=== PATIENT | female | born 1975 | race African-American/Black ===

== ENCOUNTER 2019-01-10 10:20 | Observation (INO) ==
[2019-01-10] MEDS ORDERED: NS 1,000 ML IV ONE ×3 (10:43→17:43)
--- NOTE | 2019-01-10 11:28 | Diag Imaging Result Doc PS360 ---
EXAM: CHEST-PORTABLE HISTORY: hypotension TECHNIQUE: Chest single view COMPARISON: 11/09/2018 FINDINGS: Poor inspiratory effort. The heart is not enlarged. The vessels are not distended. There are no infiltrates. No effusion identified. IMPRESSION: No acute abnormality. Electronically signed by Subhash Downey 01/10/2019 11:25 AM
[2019-01-10 11:43] LABS: BE -7.6 mmoll (-3.0-3.0); BLOOD TYPE ARTERIAL; METHB 0.3 % (0.0-1.5); O2(CT) 12.6 mL/dL (15.0-23.0); O2HB 97.3 % (95.0-99.0); PCO2(98.6) 27 mmHg (35-45); PO2(98.6) 152 mmHg (60-100); SAMPLE BLOOD; SAO2 99.2 % (95.0-100.0); pH(98.6) 7.39 (7.35-7.45)
[2019-01-10 12:09] LABS: ALLEN TEST NO; MODALITY ROOM AIR
--- NOTE | 2019-01-10 12:15 | EKG Report ---
Test Performed on : 01/10/2019 11:27:14 AM Test Reason : hypotension Blood Pressure : / mmHG Vent. Rate : 087 BPM Atrial Rate : 087 BPM P-R Int : 178 ms QRS Dur : 072 ms QT Int : 354 ms P-R-T Axes : 034 024 027 degrees QTc Int : 425 ms Normal sinus rhythm. Nonspecific T wave abnormality Abnormal ECG When compared with ECG of 05-JAN-2019 23:45, (Unconfirmed) No significant change was found Unconfirmed Result
[2019-01-10 12:16] LABS: BASO# 0.05 X1000 (0.0-0.2); BASO% 0.5 % (0.0-0.8); EOS# 0.43 X1000 (0.0-0.7); EOS% 4.3 % (0.0-10.0); HEMATOCRIT 28.1 % (37.0-47.0); HEMOGLOBIN 8.6 g/dL (12.0-16.0); IMM GRAN# 0.03 X1000 (0.0-0.04); IMM GRAN% 0.3 % (0.0-0.5); LYMPH# 1.65 X1000 (1.2-3.4); LYMPH% 16.4 % (20.5-51.1); MCH 23.6 PG (27-31); MCHC 30.6 g/dL (33-37); MCV 77.2 FL (81-99); MONO# 0.75 X1000 (0.11-0.59); MONO% 7.4 % (1.7-9.3); MPV 11.7 FL (7.4-10.4); NEUT# 7.17 X1000 (1.4-6.5); NEUT% 71.1 % (42.2-75.2); PLT 278 X1000 (130-400); RBC 3.64 XMIL (4.2-5.4); WBC 10.08 X1000 (4.8-10.8)
[2019-01-10 12:27] LABS: ALBUMIN 3.8 g/dL (3.5-5.0); CALCIUM 8.5 mg/dL (8.8-10.2); MAGNESIUM 2.1 mg/dL (1.5-2.7); PHOSPHORUS 2.8 mg/dL (2.7-4.5); POTASSIUM 4.8 mmol/L (3.5-5.1); TOTAL BILIRUBIN 0.2 mg/dL (0.20-1.00); TOTAL PROTEIN 7.7 g/dL (6.3-8.3)
[2019-01-10 12:32] LABS: INR 1.06; PROTIME 14.3 Seconds (11.0-16.0)
[2019-01-10 12:38] LABS: BILIRUBIN URINE 2+ (NEGATIVE); BLOOD URINE TRACE (NEGATIVE); CLARITY VERY CLOUDY (CLEAR); COLOR YELLOW; GLUCOSE URINE NEGATIVE (NEGATIVE); KETONE URINE TRACE mg/dL (NEGATIVE); LEUKOCYTES URINE 2+ (NEGATIVE); NITRITE URINE NEGATIVE (NEGATIVE); PROTEIN URINE 1+(30 mg/dL) mg/dL (NEGATIVE); SP GRAVITY URINE 1.025; UR AMPHETAMINES QUAL NONE DETECTED (NONE DETECT); UR BARBITUATES QUAL NONE DETECTED (NONE DETECT); UR BENZODIAZEPIN QUAL NONE DETECTED (NONE DETECT); UR CANNABINOIDS QUAL NONE DETECTED (NONE DETECT); UR COCAINE QUAL NONE DETECTED (NONE DETECT); UR METHADONE QUAL NONE DETECTED (NONE DETECT); UR METHAMPHETAMINE QUAL NONE DETECTED (NONE DETECT); UR OPIATES QUAL PRESUMPTIVE POSITIVE (NONE DETECT); UR OXYCODONE QUAL NONE DETECTED (NONE DETECT); UR PCP QUAL NONE DETECTED (NONE DETECT); UR PROPOXYPHENE QUAL NONE DETECTED (NONE DETECT); UR TCA QUAL PRESUMPTIVE POSITIVE (NONE DETECT); UROBILINOGEN URINE 1 mg/dL
[2019-01-10 12:43] LABS: URINE BACTERIA 3+ /HFP; URINE CAST NONE SEEN /LPF; URINE CRYSTAL NONE SEEN /HPF; URINE EPITHELIAL CELLS >10 /HPF (<10); URINE RBC <10 /HPF (<10); URINE SOURCE CLEAN CATCH; URINE WBC 20-40 /HPF (<10); URINE YEAST NONE SEEN /HPF
[2019-01-10] MEDS ORDERED: NORCO-5 PO ONE (13:11)
[2019-01-10] MEDS ORDERED: NS 1,000 ML ONE (14:00)
--- NOTE | 2019-01-10 14:24 | PROVIDER DOCUMENTATION ---
This chart was entered by Katina Schumacher Scribe, acting as scribe for Christiano Katz MD. HPI-General Adult - General Chief Complaint: B/P Problems Stated Complaint: LOW BP Time Seen by Provider: 01/10/19 10:41 Source: patient Allergies/Adverse Reactions: Patient Allergies Allergy/AdvReac Type Severity Reaction Status Date / Time Penicillins Allergy Unknown Unknown Verified 01/06/19 01:36 latex Allergy RASH Verified 01/06/19 01:36 Home Medications: Home Medication List Medication Instructions Recorded Confirmed Last Taken Type Gabapentin [Neurontin] 400 mg PO TID 04/24/16 01/06/19 06/19/17 History Amitriptyline HCl 100 mg PO QHS 05/18/18 01/06/19 Unknown History Hydroxyzine HCl 3 tab PO DIRECTED 05/18/18 01/05/19 Unknown History Hydrocodone/APAP 10 mg/325 mg 1 tab PO TID PRN 01/05/19 01/05/19 Unknown History [Porter-10] Magnesium Oxide 1 tab PO DAILY 01/05/19 01/05/19 Unknown History Tizanidine [Zanaflex] 1 tab PO TID 01/05/19 01/05/19 Unknown History Topiramate [Topamax] 1 tab PO DAILY 01/05/19 01/05/19 Unknown History Lurasidone HCl [Latuda] 120 mg PO DAILY 01/06/19 01/06/19 Unknown History - History of Present Illness -Gen Adult Nature of Presenting Problems: 43 yof presents to ED c/o blood in urine this morning, low blood pressure today, confusion and sleepy. Pt reports she was at Dr. Sweeney's office getting a routine iron infusion, her blood pressure dropped low and so she was referred here. Pt states she is just recovering from a UTI and kidney injury that required inpatient hospital stay 3 days ago. Pt has hx of HTN, sleep apnea, headaches/migraines and DM. Pt denies any pain. Location of Pain/Injury: reports: none Quality of Pain: reports: none Modifying Factors: improves with: nothing Associated Symptoms: reports: denies symptoms Review of Systems - Adult - REVIEW OF SYSTEMS - ADULT Constitutional: reports: see claudia HARDEN. denies: chills, fever Eyes: reports: no symptoms reported Ears, Nose, Mouth & Throat: reports: no symptoms reported Cardiovascular: reports: see HPI, other (low blood pressure). denies: chest pain, syncope Respiratory: reports: see HPI. denies: cough, shortness of breath, wheezing Gastrointestinal: reports: no symptoms reported Genitourinary: reports: see HPI, dysuria. denies: discharge, flank pain Musculoskeletal: reports: no symptoms reported Integumentary: reports: no symptoms reported Neurological: reports: see HPI, other (confusion). denies: seizure, syncope Psychiatric: reports: no symptoms reported Endocrine: reports: no symptoms reported Hematologic/Lymphatic: reports: no symptoms reported Allergic/Immunologic: reports: no symptoms reported All Other Systems: Reviewed and Negative Past History - Adult - PAST MEDICAL HISTORY-ADULT Review of Records: reports: Old Records Reviewed, Nursing Assessment Review, Medications Reviewed, Social history reviewed & non-contributory. Major Childhood Illnesses: reports: denies history Cardiovascular: reports: HTN Respiratory: reports: sleep apnea Gastrointestinal: reports: denies history Obstetrical/Gynecological: reports: denies history Genitourinary: reports: denies history Musculoskeletal: reports: denies history Neurological: reports: headaches/migraines Endocrine/Immune: reports: Diabetes Other Conditions: reports: denies history - PRIOR SURGERIES/PROCEDURES Surgical/Procedure History: reports: cholecystectomy, hysterectomy, BTL, C- section, other (simus surgery) - IMMUNIZATION STATUS Childhood Immunizations: See Nurse Assessment Flu Vaccine: See Nurse Assessment - FAMILY HISTORY Family History: reviewed, not pertinent - SOCIAL HISTORY Smoking: denies Physical Exam-General - PHYSICAL EXAM-ADULT Initial Vital Signs Reviewed: Yes - CONSTITUTIONAL General Appearance: appears well, no apparent distress, other (flat). negative: anxious - EYES Eyes: PERRL/EOMI, pink conjunctivae. negative: photophobia - HEAD, EARS, NOSE, MOUTH & THROAT HENMT: pharynx normal. negative: moist mucous membranes, pharyngeal erythema, tonsillar exudate - NECK Neck: non-tender, full range of motion, supple, normal inspection. negative: B rudzinski's sign, carotid bruit - RESPIRATORY Respiratory: chest non-tender, lungs clear, normal breath sounds, no pleuratic chest pain, no respiratory distress, no accessory muscle use. negative: crackles, rales, rhonchi - CARDIOVASCULAR Cardiovascular: normal peripheral pulses, regular rate, rhythm, no edema, no gallop, no JVD, no murmur. negative: bradycardia, tachycardia - GASTROINTESTINAL (ABDOMEN) Abdominal Exam: normal bowel sounds, non tender, soft. negative: rigid, r ebound, tenderness - LYMPHATIC Lymphatic: no adenopathy. negative: striations - MUSCULOSKELETAL Back Exam: normal inspection. negative: swelling Extremity: normal range of motion, normal inspection. negative: swelling - SKIN Integumentary: normal color, normal turgor, warm/dry. negative: jaundice Progress - PLAN OF CARE/RESULTS Progress/Plan/Lab Results: Vital Signs - 8 hr 01/10/19 10:36 01/10/19 11:02 Temperature 98.2 F Pulse Rate 87 88 Respiratory Rate 18 15 Blood Pressure 72/46 96/60 O2 Sat by Pulse Oximetry 100 100 Orders Category Date Time Status Saline Loc NOW Care 01/10/19 10:42 Active Straight Catheterization ORDERED Care 01/10/19 10:56 Active CHEST-PORTABLE [RAD] Stat Exams 01/10/19 10:43 Ordered ABG [RESP] Routine Lab 01/10/19 10:42 Ordered BLOOD CULTURE [BLDCUL] Stat Lab 01/10/19 11:01 Ordered CBC WITH ELECTRONIC DIFF [HEME] Stat Lab 01/10/19 11:01 Ordered CK PROFILE [SP CHEM] Stat Lab 01/10/19 11:01 Ordered COMPREHENSIVE METABOLIC PANEL [CHEM] Stat Lab 01/10/19 11:01 Ordered LACTATE, PLASMA [CHEM] Stat Lab 01/10/19 11:01 Ordered MAGNESIUM [CHEM] Stat Lab 01/10/19 11:01 Ordered PRO B-NATRIURETIC PEPTIDE Stat Lab 01/10/19 11:01 Ordered PROTIME WITH INR [COAG] Stat Lab 01/10/19 11:01 Ordered TROPONIN T Stat Lab 01/10/19 11:[address] W/POSS RFLX CULT [URINALYSIS] Stat Lab 01/10/19 10:43 Uncollected URINE DRUG SCREEN PL Stat Lab 01/10/19 10:43 Uncollected phos [PHOSPHORUS] [CHEM] Stat Lab 01/10/19 11:01 Ordered 0.9% Sodium Chloride Inj [Ns] 1,000 ml Med 01/10/19 10:43 Active IV 999 mls/hr 0.9% Sodium Chloride Inj [Ns] 1,000 ml Med 04/08/19 10:46 Active IV 999 mls/hr EKG [EKG] Stat Ther 01/10/19 10:42 Ordered Result Diagrams: 01/10/19 11:50 01/10/19 11:50 - REASSESSMENT Reassessment #1 Time Reassessed: 14:17 Status: other (blood pressure is back to normal but, called the hospitalist to admit for her kidney injury) Reassessment Comment: Old chart reviewed, lithium level pending. Creatinine is higher than last - EKG 1 Time of EKG reading by physician:: 11:34 EKG Read and Signed by:: Christiano Katz EKG Interpretation (*Must complete 3 of following elements*): Abnormal Rate: 87 Rhythm: normal sinus [place]: normal QRS: other (early transition) - XRAY 1 XRAY: Bilateral XRAY Study: Chest Impression: See EMR Report (IMPRESSION: No acute abnormality. Electronically signed by Subhash Downey 01/10/2019 11:25 AM) - CONSULTS/PCP/HOSPITALIST Notification #1 *Consult/PCP/Hospitalist*: [place] Time Discussed: 14:22 Consult Disposition: Admit Procedures - ADDITIONAL PROCEDURES Additional Procedure: OTHER (Blood Gases: Normal interpretation; normal acid base/ph; hypercarbia from hyperventilation; on room air blood gases; read at 12:07) Departure - Departure Date of Disposition Decision: 01/10/19 Time of Disposition Decision: 14:23 DIAGNOSIS: Acute kidney injury (nontraumatic) Hypotension, unspecified Qualifiers: Hypotension type: idiopathic hypotension Qualified Code(s): I95.0 - Idiopathic hypotension Disposition: ADMITTED INPATIENT 09 Certified Medical Emergency: Emergent Condition: Fair Referrals and Follow-Ups: Morgan Fierro MD [Primary Care Provider] - - Critical Care Note This patient required my direct & personal management of CC.: Yes Total Time (mins): 35 Critical Care Statement: This patient required my direct personal management to treat or rule out processes, the absence of which, could potentiallly result in sudden, clinically significant life or limb threatening deterioration. Attestation - Physician/ NANCY Attestation Patient care was provided by Advanced Practice Provider:: No The physician spent face to face time with patient:: Yes Advanced Practice Provider documentation review:: Supervising physician onsite and consulted in the evaluation and care of this patient. The physician did have a face to face encounter with the patient. This chart was documented by the indicated scribe, (Katina Schumacher, Sheyla) and accurately reflects the services I performed and decisions made by me, Christiano Katz MD, as attested by the provider's signature.
--- NOTE | 2019-01-10 16:02 | HISTORY AND PHYSICAL ---
PRIMARY CARE PROVIDER: Dr. Morgan Fierro. CHIEF COMPLAINT: Hypotension and weakness. HISTORY OF PRESENT ILLNESS: Mr. Dallas is a 43-year-old female recently discharged from our service on 01/08/2018 for lithium toxicity and acute kidney injury. Her lithium was discontinued and discharged after lithium levels and kidney and liver enzymes were back to normal. Per family report at the bedside for 1 to 2 days, she was feeling better. She still had some residual weakness. However, today she became extremely weak. She went in to Dr. Sweeney's office for an iron infusion. She was found to be hypotensive, and was told to come to the emergency room. They came to [place] ED where she was still found to be hypotensive in the 70's. She was given 2 L of normal saline. Blood pressures are back to normal. The patient continues to be weak. She has another acute kidney injury. Per her mother at bedside, she has been doing her medications for her and putting them in the correct boxes for her to take daily. She gets assistance from her as well as her daughter whom she lives with. They state she has not been abusing any of her medications or any [id number] medications. She did have some nausea today at Dr. Sweeney's office. She complains of constipation and reported some hematuria this morning, but denied shortness of breath, chest pain, headache, dysuria or urinary frequency. No vomiting or diarrhea. No dizziness, but did complain of not being able to see well while she was at Dr. Sweeney's office, that has since resolved. Upon examination in the room, every now and then, she will jerk her right arm. She does not know why this happens. We will admit her to the medical telemetry floor. Continue aggressive IV hydration. Check a renal ultrasound. Continue to trend her kidney and liver enzymes. PAST MEDICAL HISTORY: 1. Bipolar schizophrenia. 2. Hypertension. 3. Diet-controlled diabetes. 4. Chronic anemia. 5. Migraine headaches. 6. Obstructive sleep apnea. 7. Morbid obesity. PAST SURGICAL HISTORY: 1. Gastric bypass. 2. Hysterectomy. 3. Tubal ligation. 4. Sinus surgery. 5. Left knee scope. 6. Rotator cuff repair on left arm. 7. . 8. Cholecystectomy. SOCIAL HISTORY: She is , and lives with her and daughter. No tobacco, alcohol or illicit drug use. FAMILY HISTORY: Diabetes. ALLERGIES: Penicillin and latex. HOME MEDICATIONS: Have not been updated. However, she was most recently discharged on gabapentin, amitriptyline, hydroxyzine, Zanaflex, Topamax, Mag-Ox, [place], Latuda, and was taken off her naproxen and lithium. PHYSICAL EXAMINATION: VITAL SIGNS: Temperature 98.2 degrees, admission blood pressure was 72/46. The patient is now 107/69 and O2 is 100% on room air. GENERAL: Ms. Dallas is a weak appearing 43-year-old female who is lying on the stretcher in the ER in no acute distress. HEENT: Atraumatic, normocephalic. PERRL. NECK: Supple. Trachea midline. CARDIOVASCULAR: S1, S2 appreciated. No murmurs, gallops, or rubs. CHEST: Clear bilaterally. GI: Soft, nontender, nondistended. Positive bowel sounds. EXTREMITIES: Negative for edema. No clubbing. No cyanosis. Bilateral pedal pulses are palpable. NEUROLOGIC: Patient is awake, alert, and oriented, and answers all questions appropriately, just appears weak. LABORATORY DATA: White count 10, hemoglobin and hematocrit 8 and 28, platelet count is 278,000. Sodium 135, potassium 4.8, BUN 15, creatinine 3, blood glucose is 126, and Mag 2.1. AST 69, ALT 147, alkaline phosphatase 368. Troponin less than 0.010. Plasma lactate 1.1. Urine is cloudy, 1+ protein, 2+ bilirubin, 3+ bacteria. Toxicology is positive for opiates. Patient is on [place], positive for tricyclic's. DIAGNOSTICS: Chest x-ray with no acute abnormality. EKG is normal sinus rhythm with nonspecific T-wave abnormality. ASSESSMENT AND PLAN: 1. Hypotension. The patient is now normotensive after 2 L bolus. She continues to have weakness. We will hold any medications that can lower her blood pressure as well as continue her IV fluids. 2. Acute kidney injury. We will continue with IV hydration. Check a 24 hour urine. Check bilateral renal ultrasound. 3. Anemia. Hemoglobin and hematocrit currently stable. 4. Mild hyponatremia. Continue with IV fluids. 5. Transaminitis. Continue with IV hydration. 6. Asymptomatic bacteria. The patient has been receiving several weeks treatment for urinary tract infection. We will check a urine culture. 7. Recent admission for lithium toxicity. Her lithium was discontinued, and her lithium level was completely normal. She had also been admitted to [facility] twice for lithium toxicity, urinary tract infection and weakness back in December on the and the as well as hypotension as well as most recent admission to our hospital on 01/06/2019 for the same reasons. 8. Bipolar schizophrenia. We will continue home medications when appropriate. 9. Hypertension, now hypotensive. 10. Diet-controlled diabetes mellitus. Will continue diabetic diet. 11. Migraine headaches. 12. Further recommendation to follow physician evaluation, laboratory and diagnostic data. Dictated by DORIS Harris for Emile Hill MD cc: MD Leon Barrios MD Dr. Thomas Lane MTDD
[2019-01-10] MEDS ORDERED: ZOFRAN IV PRN (17:43)
[2019-01-10] MEDS ORDERED: ATARAX PO SCH (19:15)
--- NOTE | 2019-01-10 19:34 | HISTORY AND PHYSICAL ---
Patient came in with an episode where she passed out at Dr. Sweeney's office. She was there for I believe an iron infusion. She is on lisinopril hydrochlorothiazide. She was found to have a creatinine of 3. In any case patient was evaluated. She was just admitted a couple days ago for lithium toxicity and renal failure at that point but her kidney function got better then now it is back up to 3. Apparently she was in [place] and had a similar admission at that time. Now she was on lisinopril hydrochlorothiazide which I am assuming she has been still taking so she may just not be very tolerant of diuretics. Her exam is unremarkable except for some myoclonic jerking she has periodically. She has elevated liver enzymes as well. The patient will be admitted and followed. She does not appear to be lithium toxic. We are going to do a bit more involved studying of her kidneys, liver, avoid anything nephrotoxic including lisinopril and hydrochlorothiazide. She is on topiramate, Latuda, gabapentin, Elavil, we will need to watch these closely with her other issues. She also seems to be some degree of iron deficiencies so we will evaluate that. This is a [id number] encounter note with [place] Chung. cc: Emile Hill MD
[2019-01-10] MEDS: ELAVIL PO SCH (20:28)
[2019-01-10] MEDS ORDERED: ATARAX PO PRN (20:34)
[2019-01-10] MEDS ORDERED: NEURONTIN PO SCH (21:00)
[2019-01-11 07:39] LABS: BASO# 0.03 X1000 (0.0-0.2); BASO% 0.4 % (0.0-0.8); EOS# 0.69 X1000 (0.0-0.7); EOS% 9.8 % (0.0-10.0); HEMATOCRIT 26.9 % (37.0-47.0); IMM GRAN# 0.02 X1000 (0.0-0.04); IMM GRAN% 0.3 % (0.0-0.5); LYMPH# 1.77 X1000 (1.2-3.4); MCH 22.8 PG (27-31); MCHC 29.7 g/dL (33-37); MCV 76.6 FL (81-99); MONO# 0.39 X1000 (0.11-0.59); MONO% 5.5 % (1.7-9.3); MPV 11.8 FL (7.4-10.4); NEUT# 4.17 X1000 (1.4-6.5); PLT 238 X1000 (130-400); RBC 3.51 XMIL (4.2-5.4); RDW 16.9 % (11.5-14.5); WBC 7.07 X1000 (4.8-10.8)
[2019-01-11 08:03] LABS: AGAP 7; ALBUMIN 3.3 g/dL (3.5-5.0); ALKALINE PHOSPHATASE 289 U/L (32-104); BUN 9 mg/dL (8-22); CALCIUM 8.2 mg/dL (8.8-10.2); CHLORIDE 111 mmol/L (98-107); COSMO 273; ESTIMATED GFR > 60; GLUCOSE 106 mg/dL (70-104); GOT 34 U/L (10-30); GPT 94 U/L (10-36); IRON SATURATION 18 %; MAGNESIUM 1.9 mg/dL (1.5-2.7); POTASSIUM 4.3 mmol/L (3.5-5.1); SODIUM 137 mmol/L (136-145); TCO2 20 mmol/L (25-35); TIBC 268 ug/dL; TOTAL IRON 47 ug/dL (49-151); TOTAL PROTEIN 6.6 g/dL (6.3-8.3); UNBOUND IRON 221 ug/dL (112-346)
[2019-01-11 08:13] LABS: TSH 1.35 uIUmL (0.27-4.20)
[2019-01-11] MEDS: TOPAMAX PO SCH (08:29)
[2019-01-11] MEDS: NEURONTIN PO SCH ×3 (08:30→20:23)
[2019-01-11] MEDS: ZANAFLEX PO SCH ×3 (08:30→20:24)
[2019-01-11] MEDS: LATUDA PO SCH (08:30)
[2019-01-11] MEDS: NORCO-10 PO PRN ×2 (08:36→11:31)
--- NOTE | 2019-01-11 09:18 | Diag Imaging Result Doc PS360 ---
EXAM: US ABDOMEN-COMPLETE HISTORY: abdominal pain TECHNIQUE: Abdominal ultrasound COMPARISON: None. FINDINGS: Normal inferior vena cava. No abdominal aortic aneurysm. Normal pancreatic head and body. The tail is obscured. The liver is enlarged measuring at least 18.9 cm. There is fatty infiltration of the liver. It is difficult to penetrate the liver. The common bile duct measures 4 mm. The gallbladder has been removed. Normal right kidney. No hydronephrosis. Normal left kidney. No hydronephrosis. Normal spleen. No ascites. IMPRESSION: 1.Cholecystectomy 2.Hepatomegaly with fatty infiltration Electronically signed by Subhash Downey 01/11/2019 9:16 AM
[2019-01-11] MEDS ORDERED: NORCO-10 PO PRN (19:57)
[2019-01-11] MEDS ORDERED: FOLIC ACID 1 MG in NS 50 ML IV SCH (20:00)
[2019-01-11] MEDS: ELAVIL PO SCH (20:23)
--- NOTE | 2019-01-11 20:23 | PROGRESS NOTE ---
DATE: 01/11/2019 SUBJECTIVE: The patient has no major complaints. She is complaining of some pain in her left leg. She describes some irritation when she goes to the bathroom and some pinkish discharge, but then she has not told the nurse about that all day. OBJECTIVE: Blood pressure is 140/69, heart rate 73, respiratory rate 18, temperature 97.6 degrees. Cardiovascular: Regular rate and rhythm. Pulmonary: Bilateral breath sounds, clear to auscultation. GI was soft, nontender, nondistended. Bowel sounds are positive. LABORATORY DATA: Her creatinine is down to 1. White count 7, hemoglobin and hematocrit 8 and 26, platelets 238,000. AST and ALT are 34 and 94. Folate is low at 5.3. ASSESSMENT AND PLAN: 1. Acute kidney injury. That seems to have resolved. I would probably avoid angiotensin- converting enzyme inhibitors, hydrochlorothiazide. I am not entirely sure she had started that back when she was discharged, but I think for right now we are going to hold off. Waiting on her urine electrolytes. Renal ultrasound did not show any significant pathology. 2. Bipolar, schizophrenia. Not quite sure how far off her baseline she is, but in any case, she is on her regular medications. We have had to stop her lithium because she had significant toxicity associated. 3. Disposition: I think she is probably stable to be discharged tomorrow once we get all her testing back. cc: Emile Hill MD
[2019-01-11] MEDS ORDERED: ZANAFLEX PO SCH (21:00)
[2019-01-11] MEDS ORDERED: ATARAX PO SCH (21:00)
[2019-01-12 07:25] LABS: BASO# 0.03 X1000 (0.0-0.2); BASO% 0.5 % (0.0-0.8); EOS# 0.73 X1000 (0.0-0.7); EOS% 11.1 % (0.0-10.0); HEMATOCRIT 28.3 % (37.0-47.0); HEMOGLOBIN 8.4 g/dL (12.0-16.0); IMM GRAN# 0.04 X1000 (0.0-0.04); IMM GRAN% 0.6 % (0.0-0.5); LYMPH# 1.92 X1000 (1.2-3.4); LYMPH% 29.1 % (20.5-51.1); MCHC 29.7 g/dL (33-37); MCV 77.3 FL (81-99); MONO# 0.41 X1000 (0.11-0.59); MONO% 6.2 % (1.7-9.3); MPV 11.8 FL (7.4-10.4); NEUT# 3.46 X1000 (1.4-6.5); NEUT% 52.5 % (42.2-75.2); PLT 275 X1000 (130-400); RBC 3.66 XMIL (4.2-5.4); RDW 17.5 % (11.5-14.5); WBC 6.59 X1000 (4.8-10.8)
[2019-01-12 07:44] LABS: AGAP 7; BUN 8 mg/dL (8-22); CALCIUM 8.5 mg/dL (8.8-10.2); CHLORIDE 108 mmol/L (98-107); COSMO 271; ESTIMATED GFR > 60; GLUCOSE 111 mg/dL (70-104); POTASSIUM 4.1 mmol/L (3.5-5.1); SODIUM 136 mmol/L (136-145); TCO2 21 mmol/L (25-35)
[2019-01-12] MEDS: LATUDA PO SCH (09:35)
[2019-01-12] MEDS: TOPAMAX PO SCH (09:35)
[2019-01-12] MEDS: NEURONTIN PO SCH (09:35)
[2019-01-12] MEDS: ZANAFLEX PO SCH (09:36)
[2019-01-12 10:47] VITALS: BP 108/71
[2019-01-12] MEDS ORDERED: FOLIC ACID PO ONE (11:07)
[2019-01-12 12:28] LABS: HEPATITIS PROFILE ACUTE SEE COMMENTS
--- NOTE | 2019-01-12 14:17 | DISCHARGE SUMMARY ---
ADMISSION DATE: 01/10/2019 DISCHARGE DATE: 01/12/2019 DISCHARGE ADDENDUM: She is looking well. No major complaints. She did get a little bit dizzy with standing. She is still having some twitching. Her vital signs though all look stable. If anything, she is a little bit on the hypotensive side. Hemoglobin and hematocrit is 8 and 28, white count 6. Her creatinine is at 1. Overall, she is stable. She is stable. Patient is somewhat folate deficient. Her exam is unremarkable. She was not orthostatic. I think that she is stable to go home today. She really needs a close follow-up with her psychiatrist because I think a lot of her psychiatric medicines need to be adjusted. She has been taken off her lithium. She is on a very high dose of Latuda, very high dose. I do not know if that could be possibly decreased. She is on Topamax, Neurontin, and 100 mg of amitriptyline. I would just recommend follow up closely with her psychiatrist because she has got pretty significant schizoaffective disorder and follow closely. We are going to stop her lisinopril/hydrochlorothiazide, #1 her blood pressure is not high enough for it, and #2 it probably contributed to her most recent acute renal failure episode. cc: MD Morgan Barrios MD
--- NOTE | 2019-01-12 22:14 | DISCHARGE SUMMARY ---
ADMISSION DATE: 01/10/2019 DISCHARGE DATE: 01/12/2019 CONSULTATIONS: None. PERTINENT PROCEDURES: Chest x-ray with no acute abnormality. Abdominal ultrasound with cholecystectomy, hepatomegaly with fatty infiltration of the liver. DISCHARGE DIAGNOSES: 1. Acute kidney injury, resolved. We have held the patient's TIMOTHY inhibitor and hydrochlorothiazide. Renal ultrasound did not show any significant pathology. She has been educated to stay hydrated and again hold these medications. 2. Bipolar schizophrenia. She will continue on her regular medications. Her lithium had to be discontinued previously because of significant toxicity on 2 occasions since December. 3. Hypertension, stable. 4. Diet-controlled diabetes. Continue diabetic diet. 5. Morbid obesity, BMI of 40.4. HOSPITAL COURSE: Briefly, Ms. Dallas is a 43-year-old female who had recently been discharged from our service on 01/08/2019 for lithium toxicity and acute kidney injury. Her lithium was discontinued per family report after she was sent home. She did well for 1 and almost 2 days, and then she became extremely weak. She went to Dr. Sweeney's office where she received iron infusions for her anemia. She was found to be hypotensive and was told to come to the ED. Upon arrival at the ED, her blood pressures were in the 70s. She came up to normotensive with 2 fluid boluses. She again was noted to have an acute kidney injury. Her mother has been setting up her medications to make sure that she takes them correctly on a daily basis. They denied her abusing any of her medications. The patient had also been previously admitted to [facility] for acute kidney injury and lithium toxicity back in December as well. Again, she was aggressively hydrated. A renal ultrasound did not show any obstruction. Her kidney function is now back down to normal. We have discontinued her Timothy and hydrochlorothiazide and will not continue those. She has had a stable clinical course and is being discharged back home with family today. VITAL SIGNS: At time of discharge, temperature is 98.3 degrees, heart rate 90, respirations 18, blood pressure 118/71, O2 is 97% on room air. DISCHARGE DIET: Diabetic. DISCHARGE MEDICATIONS: 1. Amitriptyline 100 mg p.o. at bedtime. 2. Hydroxyzine 30 mg p.o. at bedtime. 3. Hydroxyzine 30 mg p.o. daily. 4. Latuda 120 mg p.o. daily. 5. Mag-Ox 400 mg p.o. daily. 6. Neurontin 400 mg p.o. t.i.d. 7. Amlin 10/325 one tab p.o. q.8 hours p.r.n. pain. 8. Topamax 50 mg p.o. daily. 9. Zanaflex 4 mg p.o. t.i.d. 10. Folic acid 1 mg p.o. daily. FOLLOWUP: Ms. Dallas is being discharged back home with her family. She is to follow up with her primary care provider, Dr. Morgan Fierro, as well as her normal psychiatrist to go over her psych medications. Again, we are holding any TIMOTHY inhibitors and hydrochlorothiazide given repeated acute kidney injuries. She can return to the ED or call 911 for any worsening of symptoms. Dictated by DORIS Harris for Emile Hill MD cc: Emile Hill MD MTDD
[2019-01-13] MEDS ORDERED: FOLIC ACID PO SCH (09:00)
== END 2019-01-12 12:26 | disposition home health service (06) ==
LOC: P.MEDSURG 10:20 → P.ED 10:20
PROVIDERS: ATTEND Internal Medicine
CPT/HCPCS: 51701; 71010; 71045; 76700; 80048; 80053; 80074; 80104; 80178; 80301; 80305; 81001; 82550; 82607; 82728; 82746; 82805; 82948; 83540; 83550; 83605; 83735; 83880; 83930; 83935; 84100; 84443; 84484; 85025; 85610; 87040; 87088; 93005; 94799; 96360; 96361; 97163; 97530; 99285; A9270; G0431; G0434; G0477; J7030; P9612; XXXXX